=== PATIENT | female | born 1985 | race Two or more races ===

== ENCOUNTER 2019-06-18 20:03 | Emergency (ER) | payer BC ==
[2019-06-18 20:16] VITALS: BP 132/67; PULSE 91
[2019-06-18] MEDS ORDERED: Sodium Chloride 0.9% 10 ML Syringe FLUSH PRN (20:28)
--- NOTE | 2019-06-18 20:57 | EDM.PDOC ---
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 She is with a LMP of 04/21/19. States that about an hour prior to coming to ER she had a "gush of pink blood "followed by a small amount of malina red blood. She has had some slight spotting since that time. She states initially she had some cramping in her right lower quadrant, however she now only has some mild left lower quadrant pain. States that she has had some occasional spotting earlier in the , however nothing significant. 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 Matt. 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 ED EXAM - Physical Exam Exam: See Below Exam Limited By: No Limitations General Appearance: Alert, WD/WN, No Apparent Distress Respiratory/Chest: No Respiratory Distress, Lungs Clear, Normal Breath Sounds, No Accessory Muscle Use, Chest Non-Tender Cardiovascular: Normal Peripheral Pulses, Regular Rate, Rhythm, No Edema, No Gallop, No JVD, No Murmur, No Rub GI/Abdominal Exam: Normal Bowel Sounds, Soft, Non-Tender, No Organomegaly, No Distention, No Abnormal Bruit, No Mass, Pelvis Stable (Female) Exam: Normal External Exam, Vaginal Bleeding, Other (Cervical os closed. Small amount of bleeding noted from the cervical os.). No: Cervical Lesions Neurological: Alert, Oriented, CN II-XII Intact, Normal Cognition, Normal Gait, Normal Reflexes, No Motor/Sensory Deficits Psychiatric: Normal Affect, Normal Mood Skin Exam: Warm, Dry, Intact, Normal Color, No Rash Course - Vital Signs Last Recorded V/S: Last Vital Signs Temp 98.6 F 06/18/19 20:12 Pulse 91 06/18/19 20:12 Resp 14 06/18/19 20:12 BP 132/67 06/18/19 20:12 Pulse Ox 100 06/18/19 20:12 - Orders/Labs/Meds Orders: Active Orders 24 hr Category Date Time Status Pelvic Exam, Set Up [RC] ASDIRECTED Care 06/18/19 21:18 Active Peripheral IV Care [RC] . DIRECTED Care 06/18/19 20:29 Active OB 1st Tri Sgl 1st Gest [US] Stat Exams 06/18/19 20:28 Taken TYPE AND SCREEN [BBK] Stat Lab 06/18/19 20:42 Results Peripheral IV Insertion Adult [OM.PC] Stat Oth 06/18/19 20:28 Ordered Labs: Laboratory Tests 06/18/19 06/18/19 06/18/19 Range/Units 20:42 20:42 20:42 WBC 10.03 (3.98-10.04) K/mm3 RBC 4.30 (3.98-5.22) M/mm3 Hgb 12.5 D (11.2-15.7) gm/dl Hct 36.1 (34.1-44.9) % MCV 84.0 D (79.4-94.8) fl MCH 29.1 (25.6-32.2) pg MCHC 34.6 (32.2-35.5) g/dl RDW Std Deviation 49.1 H (36.4-46.3) fL Plt Count 292 D (182-369) K/mm3 MPV 8.9 L (9.4-12.3) fl Neut % (Auto) 57.8 (34.0-71.1) % Lymph % (Auto) 32.1 (19.3-51.7) % [place] % (Auto) 8.0 (4.7-12.5) % Eos % (Auto) 1.8 (0.7-5.8) Baso % (Auto) 0.1 (0.1-1.2) % Neut # (Auto) 5.80 (1.56-6.13) K/mm3 Lymph # (Auto) 3.22 (1.18-3.74) K/mm3 [place] # (Auto) 0.80 H (0.24-0.36) K/mm3 Eos # (Auto) 0.18 (0.04-0.36) K/mm3 Baso # (Auto) 0.01 (0.01-0.08) K/mm3 Manual Slide Review Normal smear Sodium 139 (136-145) mEq/L Potassium 3.3 L (3.5-5.1) mEq/L Chloride 103 (98-107) mEq/L Carbon Dioxide 22 (21-32) mEq/L Anion Gap 17.3 H (5-15) BUN 11 (7-18) mg/dL Creatinine 0.9 (0.55-1.02) mg/dL Est Cr Clr Drug Dosing 83.23 mL/min Estimated GFR (MDRD) > 60 (>60) mL/min BUN/Creatinine Ratio 12.2 L (14-18) Glucose 96 (74-106) mg/dL Calcium 9.2 (8.5-10.1) mg/dL Total Bilirubin 0.1 L (0.2-1.0) mg/dL AST 13 L (15-37) U/L ALT 21 (14-59) U/L Alkaline Phosphatase 80 (46-116) U/L Total Protein 7.0 (6.4-8.2) g/dl Albumin 3.7 (3.4-5.0) g/dl Globulin 3.3 gm/dL Albumin/Globulin Ratio 1.1 (1-2) HCG, Quant 367333.0 mIU/mL Urine Color (Yellow) Urine Appearance (Clear) Urine pH (5.0-8.0) Ur Specific [place] (1.005-1.030) Urine Protein (Negative) Urine Glucose (UA) (Negative) Urine Ketones (Negative) Urine Occult Blood (Negative) Urine Nitrite (Negative) Urine Bilirubin (Negative) Urine Urobilinogen (0.2-1.0) Ur Leukocyte Esterase (Negative) Urine RBC (0-5) /hpf Urine WBC (0-5) /hpf Ur Squamous Epith Cells (0-5) /hpf Urine Bacteria (FEW) /hpf Urine Mucus (FEW) /hpf Blood Type O POSITIVE 06/18/19 Range/Units 20:51 WBC (3.98-10.04) K/mm3 RBC (3.98-5.22) M/mm3 Hgb (11.2-15.7) gm/dl Hct (34.1-44.9) % MCV (79.4-94.8) fl MCH (25.6-32.2) pg MCHC (32.2-35.5) g/dl RDW Std Deviation (36.4-46.3) fL Plt Count (182-369) K/mm3 MPV (9.4-12.3) fl Neut % (Auto) (34.0-71.1) % Lymph % (Auto) (19.3-51.7) % [place] % (Auto) (4.7-12.5) % Eos % (Auto) (0.7-5.8) Baso % (Auto) (0.1-1.2) % Neut # (Auto) (1.56-6.13) K/mm3 Lymph # (Auto) (1.18-3.74) K/mm3 [place] # (Auto) (0.24-0.36) K/mm3 Eos # (Auto) (0.04-0.36) K/mm3 Baso # (Auto) (0.01-0.08) K/mm3 Manual Slide Review Sodium (136-145) mEq/L Potassium (3.5-5.1) mEq/L Chloride (98-107) mEq/L Carbon Dioxide (21-32) mEq/L Anion Gap (5-15) BUN (7-18) mg/dL Creatinine (0.55-1.02) mg/dL Est Cr Clr Drug Dosing mL/min Estimated GFR (MDRD) (>60) mL/min BUN/Creatinine Ratio (14-18) Glucose (74-106) mg/dL Calcium (8.5-10.1) mg/dL Total Bilirubin (0.2-1.0) mg/dL AST (15-37) U/L ALT (14-59) U/L Alkaline Phosphatase (46-116) U/L Total Protein (6.4-8.2) g/dl Albumin (3.4-5.0) g/dl Globulin gm/dL Albumin/Globulin Ratio (1-2) HCG, Quant mIU/mL Urine Color [place] H (Yellow) Urine Appearance Turbid H (Clear) Urine pH 6.0 (5.0-8.0) Ur Specific [place] > or = 1.030 (1.005-1.030) Urine Protein 1+ H (Negative) Urine Glucose (UA) Negative (Negative) Urine Ketones Trace H (Negative) Urine Occult Blood 3+ H (Negative) Urine Nitrite Negative (Negative) Urine Bilirubin Negative (Negative) Urine Urobilinogen 0.2 (0.2-1.0) Ur Leukocyte Esterase Negative (Negative) Urine RBC >100 H (0-5) /hpf Urine WBC 0-5 (0-5) /hpf Ur Squamous Epith Cells 5-10 H (0-5) /hpf Urine Bacteria Rare (FEW) /hpf Urine Mucus Not seen (FEW) /hpf Blood Type Meds: Medications Discontinued Medications Generic Name Dose Route Start Last Admin Trade Name Freq PRN Reason Stop Dose Admin Sodium Chloride 10 ml 06/18/19 20:28 Saline Flush FLUSH ASDIRECTED PRN Keep Vein Open Departure - Departure Time of Disposition: 21:47 Disposition: Home, Self-Care 01 Condition: Fair Clinical Impression: Subchorionic hematoma in first trimester Qualifiers: Fetus number: single or unspecified fetus Qualified Code(s): O41.8X10 - Other specified disorders of amniotic fluid and membranes, first trimester, not applicable or unspecified - Discharge Information *PRESCRIPTION DRUG MONITORING PROGRAM REVIEWED*: No *COPY OF PRESCRIPTION DRUG MONITORING REPORT IN PATIENT UNA: No Instructions: Subchorionic Hematoma Referrals: Dominick Matt MD [Physician] - Forms: ED Department Discharge Additional Instructions: You were seen in the emergency department today for vaginal bleeding. Your work -up included blood work, urinalysis, and an ultrasound. Your blood work was found to be normal. Your hCG levels are appropriately elevated for your dates. Ultrasound does show that you have a subchorionic hemorrhage which would explain the bleeding you are having. As we discussed, this does not mean that you are having a miscarriage, however it does increase the possibility that you could have a miscarriage. Based on the measurements, your estimated due date is February 03, 2020. Oftentimes, the bleeding associate with a subchorionic hemorrhage will resolve on its own over the next few days. If you should begin bleeding to the amount where you are saturating a pad an hour for more than 2 hours, I would recommend that you return to the emergency department for evaluation. Additionally, I would recommend that you call Dr. Matt's office on Thursday morning to see about scheduling a follow-up appointment prior to July 06 as you are currently scheduled. If you develop any new or worsening symptoms of concern, please do not hesitate to return to the emergency department. Sepsis Event Note - Evaluation Sepsis Screening Result: No Definite Risk - Focused Exam Vital Signs: Vital Signs Temp Pulse Resp BP Pulse Ox 06/18/19 20:12 98.6 F 91 14 132/67 100 Date Exam was Performed: 06/18/19 Time Exam was Performed: 22:11 - My Orders Last 24 Hours: My Active Orders 06/18/19 20:28 OB 1st Tri Sgl 1st Gest [US] Stat Peripheral IV Insertion Adult [OM.PC] Stat 06/18/19 20:29 Peripheral IV Care [RC] . DIRECTED 06/18/19 20:42 TYPE AND SCREEN [BBK] Stat 06/18/19 21:18 Pelvic Exam, Set Up [RC] ASDIRECTED - Assessment/Plan Last 24 Hours: My Active Orders 06/18/19 20:28 OB 1st Tri Sgl 1st Gest [US] Stat Peripheral IV Insertion Adult [OM.PC] Stat 06/18/19 20:29 Peripheral IV Care [RC] . DIRECTED 06/18/19 20:42 TYPE AND SCREEN [BBK] Stat 06/18/19 21:18 Pelvic Exam, Set Up [RC] ASDIRECTED
--- NOTE | 2019-06-19 09:40 | US ---
1st trimester obstetrical ultrasound: Multiple real-time images were obtained transabdominally. Comparison: No previous study for current . Dates: LMP: LMP given as 04/21/19, NAN 01/26/20, gestational age 8 weeks 2 days Current ultrasound: NAN 01/25/20, gestational age 8 weeks 3 days Single intrauterine gestation is seen. Yolk sac and small embryo are identified. Minimal subchorionic hemorrhage is noted. Maternal ovaries are seen. 2.7 cm corpus luteum cyst is noted within the right ovary. Measurements: Hysham-rump length: 1.92 cm - 8 weeks 3 days Heart rate: 168 bpm Impression: 1. Single intrauterine gestation. Dates as noted above. 2. Minimal subchorionic hemorrhage. 3. Small 2.7 cm corpus luteum cyst within the right ovary. Diagnostic code #2 This report was dictated in MDT I agree with preliminary report from bandar, finalized on 06/18/19, 10:33 PM Central Time
== END 2019-06-18 22:00 | disposition home or self-care (01) ==
LOC: JD.ED 20:03
DX: O20.8 Other hemorrhage in early pregnancy (principal); O99.331 Smoking (tobacco) complicating pregnancy, first trimester; F17.210 Nicotine dependence, cigarettes, uncomplicated; Z88.0 Allergy status to penicillin; Z3A.11 11 weeks gestation of pregnancy
CPT/HCPCS: 36415; 76801; 76801-26; 80053; 81001; 84702; 85025; 86850; 86900; 86901; 99283; 99284-25

== ENCOUNTER 2020-01-20 05:28 | Inpatient (IN) | payer BC ==
--- NOTE | 2020-01-19 20:36 | PCM.LDHP ---
L&D History of Present Illness - General Date of Service: 01/20/20 Admit Problem/Dx: Admission Diagnosis/Problem Admission Diagnosis/Problem section 01/19/20 20:26 Lida is a 34-year-old 6 para 4-0-1-4 white female 1/7 weeks gestational age with an NAN of 01/26/2020 who was admitted for elective repeat section. Source of Information: Patient History Limitations: Reports: No Limitations - History of Present Illness Introduction:: Lida is a 34-year-old 6 para 4-0-1-4 white female 1/7 weeks gestational age with an NAN of 01/26/2020 who was admitted for elective repeat section. Repeat section, its risks, benefits including encountering significant scarring, potential for placenta accreta, bleeding, injury, possible blood clots, anesthesia risk and infection are discussed in detail with patient. She appears understand, wishes to proceed and has signed a consent. 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 She had menarche at approximately 13 years of age. Cycles come q. months. Her NAN of 01/26/2020 was set by her certain last menstrual period which started on 04/21/2019. It is supported by multiple ultrasounds done since that time. She denies any control at the time of conception. Her past obstetric history includes sections x4. She has had 1 elective termination of . Her largest baby has been 8 pounds 10 ounces and smallest baby has been 6 pounds 15 ounces. Her section was done for a placental abruption. course: Patient was seen for her first visit at approximately 8 weeks and 6 days. She is seen on a regular basis. Her vital signs remained stable throughout the . Her fundal height growth was appropriate. Her weight gain was from 154.2 to 173.2 pounds for a 19 pound increase. Patient smoked throughout the course of her at less than 1 pack/day. Her group B strep screen is negative. She did have an abnormal 1 hour glucose tolerance test but a normal 3-hour GTT. She declined genetic testing. Her [place] depression screen score on 09/05/2019 was 1/30. Patient received her flu shot on 12/09/2019. She plans to bottlefeed. The placenta is felt to have a succenturiate lobe with marginal cord insertion. Immune. Tdap was given on 11/28/2019. Laboratory testing in consists of the following: Blood is all positive with a negative antibody screen. First hemoglobin was 12.8 g/dL. Platelets were 292,000. Rubella titer showed immunity. RPR was nonreactive. Urine culture was negative. Hepatitis B surface antigen and HIV assays were both negative. Chlamydia and gonorrhea assays were both negative. Second trimester hemoglobin was low at 11.5 g/dL. She was started on ferrous sulfate 325 mg p.o. daily at that time. Platelets at second trimester were 271,000. 1 hour GTT was 150. Her fasting blood sugar was 89. 1 hour glucose was 173. 2- hour glucose was 136. 3-hour glucose was 52. Group the strep screen was negative. Allergies: 1. Penicillin which causes a rash Medications: 1. Ferrous sulfate 325 mg p.o. daily 2. vitamins 1 p.o. daily Past medical history: Unremarkable Past surgical history: 1. D&C 2007 2. C-sections 2007, 2008, 2010, 2015 teen Family history: Mother is alive with some health issues which are unknown. Maternal grandmother is secondary to diabetes and liver cancer. Maternal grandfather is secondary diabetes, stomach cancer and high blood pressure. Maternal aunt with uterine and breast cancer. Family history is positive for menorrhagia and dysmenorrhea with hysterectomies and all of her aunts. There is no family history of bleeding or clotting disorders, anesthesia related issues or related issues. Social history: Patient is . She is a food-ne-kqqs mom. She is a high school graduate. She denies any significant also alcohol or drugs. She smokes less than 1 pack cigarettes per day. Her name is Dio Chew. Review of systems: In general patient has no complaints. Baby has been active. Skin: Negative Lungs: No infectious symptoms or shortness of breath Cardiovascular: No chest pain or exercise intolerance Breasts: No lumps, changes in size, pain, dimpling, discharge or axillary or supraclavicular concerns. GI: Negative : Changes associated with . Musculoskeletal: Negative Neurological: Negative Physical exam: In general the patient is well-developed, well-nourished, pleasant female of stated age in no acute distress. Valuation in clinic patient's blood pressure was 118/66. Weight was 173 with a pregravid weight of 154.2. Height is 5 feet 5 inches. Prepregnancy body mass index is 25.3. Skin is warm dry without lesions. HEENT, neck and back within normal limits. Lungs are clear with good breath sounds in all lung minor. Cardiovascular exam shows regular and rhythm without murmurs. Breast exam is deferred at this time having been done at first visit and found to be normal. Patient plans to bottlefeed. Abdomen is with last fundal height in at 40.5 cm. Baby in vertex presentation by Minesh maneuvers. Genital and per digital exam last done on 01/02/2020 shows cervix to be closed/thick/soft/-3/mid. Extremities and neurological exam are grossly within normal limits. 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 D&C 2007 Psychiatric History: Reports: Anxiety - Past Surgical History Female Surgical History: Reports: Section Social & Family History - Family History Family Medical History: Noncontributory - Tobacco Use Tobacco Use Status *Q: Current Every Day Tobacco User Years of Tobacco use: 10 Packs/Tins Daily: 1 Used Tobacco, but Quit: No Second Hand Smoke Exposure: Yes - Caffeine Use Caffeine Use: Reports: None - Recreational Drug Use Recreational Drug Use: No H&P Review of Systems - Review of Systems: Review Of Systems: See Below L&D Exam - Exam Exam: See Below Problem List Initiated/Reviewed/Updated: Yes Assessment/Plan Comment:: 1. 39-1/7-week intrauterine , history of previous section x4 with desire for repeat section. 2. Group B strep screen negative 3. Risk factors for include history of smoking, history of previous section x4 4. Succenturiate lobe with marginal cord insertion on placental evaluation with ultrasound 5. Patient plans to bottlefeed. 6. Patient is rubella immune. She has had her flu shot and her Tdap during the course of the . Plan: 1. Repeat lower uterine segment transverse section through Pfannenstiel skin incision under spinal block. The procedure, risk, benefits, potential for placenta accreta or separation of the uterine scar and possible need for additional surgery including possibility of hysterectomy all discussed with the patient in detail. She appears understand, wishes to proceed and has signed a consent. 2. DVT prophylaxis with SCDs 3. Covid testing, CBC, type and screen, RPR prior to surgery. 4. Antibiotic prophylaxis prior to surgery 5. Support bottlefeeding decision
[~2020-01-20 05:28] MED LIST: Citric Acid/Sodium Citrate Solution 30 ML Cup PO ONE; Clindamycin Phosphate in D5W 900 MG in Premix Bag 1 BAG IV ONE; Metoclopramide 10 MG/2 ML SDV IVPUSH ONE; Oxytocin/Lactated Ringers 20 UNIT/1,000 ML BAG IV SCH; Sodium Chloride 0.9% 10 ML Syringe FLUSH PRN
[2020-01-20] MEDS: Lactated Ringers 1,000 ML IV SCH ×2 (05:57→07:38)
[2020-01-20] MEDS ORDERED: Morphine PF 10 MG/10 ML SDV ONE (07:07)
[2020-01-20] MEDS ORDERED: Phenylephrine 1% 10 MG/ML SDV ONE (07:07)
[2020-01-20] MEDS ORDERED: Ketorolac 30 MG/ML SDV ONE (07:08)
[2020-01-20] MEDS ORDERED: Oxytocin 10 Units/1 ML SDV ONE (07:08)
[2020-01-20] MEDS ORDERED: Citric Acid/Sodium Citrate Solution 30 ML Cup ONE (07:12)
[2020-01-20] MEDS ORDERED: Lactated Ringers 1,000 ML ONE ×2 (07:12→07:15)
[2020-01-20] MEDS ORDERED: Metoclopramide 10 MG/2 ML SDV ONE (07:12)
[2020-01-20] MEDS ORDERED: Bupivacaine 0.5% 30 ML SDV ONE (07:15)
[2020-01-20] MEDS ORDERED: diphenhydrAMINE 50 MG/ML SDV IVPUSH PRN ×2 (09:03→10:18)
--- NOTE | 2020-01-20 09:04 | PCM.POSTAN ---
POST ANESTHESIA ASSESSMENT - MENTAL STATUS Mental Status: Alert, Oriented - VITAL SIGNS Vital Signs: Last Vital Signs Temp 36.8 C 01/20/20 05:47 Pulse 85 01/20/20 05:47 Resp 16 01/20/20 05:47 BP 118/79 01/20/20 05:47 Pulse Ox 99 01/20/20 05:47 - RESPIRATORY Respiratory Status: Respiratory Rate WNL, Airway Patent, O2 Saturation Stable - CARDIOVASCULAR CV Status: Pulse Rate WNL, Blood Pressure Stable - GASTROINTESTINAL GI Status: No Symptoms - PAIN Pain Score: 0 - POST OP HYDRATION Hydration Status: Adequate & Stable - OBSERVATIONS Free Text/Narrative:: no anesthesia complications noted
--- NOTE | 2020-01-20 09:05 | PCM.PREANE ---
Preanesthetic Assessment - Procedure Proposed Procedure: Repeat - Anesthesia/Transfusion/Family Hx Anesthesia History: Prior Anesthesia Without Reaction Family History of Anesthesia Reaction: No Transfusion History: No Prior Transfusion(s) - Review of Systems General: No Symptoms Pulmonary: No Symptoms Cardiovascular: No Symptoms Gastrointestinal: No Symptoms Neurological: No Symptoms Other: Reports: None - Physical Assessment NPO Status Date: 01/19/20 NPO Status Time: 00:00 Vital Signs: Last Vital Signs Temp 36.8 C 01/20/20 05:47 Pulse 85 01/20/20 05:47 Resp 16 01/20/20 05:47 BP 118/79 01/20/20 05:47 Pulse Ox 99 01/20/20 05:47 Height: 1.65 m Weight: 78.018 kg ASA Class: 2 Mental Status: Alert & Oriented x3 Airway Class: Mallampati = 1 Dentition: Reports: Normal Dentition Thyro-Mental Finger Breadths: 3 Mouth Opening Finger Breadths: 3 ROM/Head Extension: Full Lungs: Clear to Auscultation, Normal Respiratory Effort Cardiovascular: Regular Rate, Regular Rhythm - Lab Values: Laboratory Last Values WBC 10.58 K/mm3 (3.98-10.04) H 01/20/20 06:00 RBC 3.78 M/mm3 (3.98-5.22) L 01/20/20 06:00 Hgb 12.2 gm/dl (11.2-15.7) 01/20/20 06:00 Hct 35.8 % (34.1-44.9) 01/20/20 06:00 MCV 94.7 fl (79.4-94.8) 01/20/20 06:00 MCH 32.3 pg (25.6-32.2) H 01/20/20 06:00 MCHC 34.1 g/dl (32.2-35.5) 01/20/20 06:00 RDW Std Deviation 45.1 fL (36.4-46.3) 01/20/20 06:00 Plt Count 253 K/mm3 (182-369) 01/20/20 06:00 MPV 9.3 fl (9.4-12.3) L 01/20/20 06:00 Neut % (Auto) 65.0 % (34.0-71.1) 01/20/20 06:00 Lymph % (Auto) 26.5 % (19.3-51.7) 01/20/20 06:00 [place] % (Auto) 6.5 % (4.7-12.5) 01/20/20 06:00 Eos % (Auto) 1.0 (0.7-5.8) 01/20/20 06:00 Baso % (Auto) 0.1 % (0.1-1.2) 01/20/20 06:00 Neut # (Auto) 6.87 K/mm3 (1.56-6.13) H 01/20/20 06:00 Lymph # (Auto) 2.80 K/mm3 (1.18-3.74) 01/20/20 06:00 [place] # (Auto) 0.69 K/mm3 (0.24-0.36) H 01/20/20 06:00 Eos # (Auto) 0.11 K/mm3 (0.04-0.36) 01/20/20 06:00 Baso # (Auto) 0.01 K/mm3 (0.01-0.08) 01/20/20 06:00 Blood Type O POSITIVE 01/20/20 06:00 Gel Antibody Screen Negative 01/20/20 06:00 - Allergies Allergies/Adverse Reactions: Allergies Allergy/AdvReac Type Severity Reaction Status Date / Time Penicillins Allergy Hives Verified 01/19/20 16:37 - Anesthesia Plan Pre-Op Medication Ordered: Antacids - Acknowledgements Anesthesia Type Planned: Spinal Pt an Appropriate Candidate for the Planned Anesthesia: Yes Alternatives and Risks of Anesthesia Discussed w Pt/Guardian: Yes Pt/Guardian Understands and Agrees with Anesthesia Plan: Yes PreAnesthesia Questionnaire Gastrointestinal History: Reports: GERD 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 D&C 2007 Psychiatric History: Reports: Anxiety - Past Surgical History Female Surgical History: Reports: Section - SUBSTANCE USE Tobacco Use Status *Q: Current Every Day Tobacco User Tobacco Use Within Last Twelve Months: Cigarettes Second Hand Smoke Exposure: Yes Recreational Drug Use History: No - HOME MEDS Home Medications: Home Meds Ferrous Sulfate 325 mg PO DAILY 01/19/20 [History] Pnv No.95/Ferrous Fum/Folic AC [ Tablet] 1 tab PO DAILY 01/19/20 [History] traMADol HCl [Tramadol HCl] 50 mg PO Q8HR PRN 01/19/20 [History] - CURRENT (IN HOUSE) MEDS Current Meds: Current Medications Diphenhydramine HCl (Benadryl) 25 mg IVPUSH Q6H PRN PRN Reason: Itching Oxytocin/Lactated Ringer's (Pitocin In Lr 20 Units/1,000 Ml) 20 unit in 1,000 mls @ 500 mls/hr IV TITRATE ISABEL; Protocol Lactated Ringer's (Ringers, Lactated) 1,000 mls @ 125 mls/hr IV ASDIRECTED ISABEL Last Admin: 01/20/20 07:38 Dose: 125 mls/hr Documented by: Sodium Chloride (Saline Flush) 10 ml FLUSH ASDIRECTED PRN PRN Reason: Keep Vein Open Discontinued Medications Bupivacaine HCl (Marcaine 0.5%) Confirm Administered Dose 30 ml .ROUTE .STK-MED ONE Stop: 01/20/20 07:16 Citric Acid/Sodium Citrate (Bicitra Solution) 30 ml PO ONETIME ONE Stop: 01/20/20 02:13 Last Admin: 01/20/20 07:18 Dose: 30 ml Documented by: Citric Acid/Sodium Citrate (Bicitra Solution) Confirm Administered Dose 30 ml .ROUTE .STK-MED ONE Stop: 01/20/20 07:13 Gentamicin Sulfate (Pharmacy To Dose - Gentamicin) 1 dose .XX ASDIRECTED [facility] Clindamycin Phosphate 900 mg/ (Premix) 50 mls @ 100 mls/hr IV ONETIME ONE Stop: 01/20/20 02:41 Gentamicin Sulfate 390 mg/ (Sodium Chloride) 109.75 mls @ 109.75 mls/hr IV ONETIME ONE Stop: 01/20/20 08:29 Lactated Ringer's (Ringers, Lactated) Confirm Administered Dose 1,000 mls @ as directed .ROUTE .STK-MED ONE Stop: 01/20/20 07:13 Lactated Ringer's (Ringers, Lactated) Confirm Administered Dose 1,000 mls @ as directed .ROUTE .STK-MED ONE Stop: 01/20/20 07:16 Ketorolac Tromethamine (Toradol) Confirm Administered Dose 30 mg .ROUTE .STK-MED ONE Stop: 01/20/20 07:09 Metoclopramide HCl (Reglan) 10 mg IVPUSH ONETIME ONE Stop: 01/20/20 02:13 Last Admin: 01/20/20 07:18 Dose: 10 mg Documented by: Metoclopramide HCl (Reglan) Confirm Administered Dose 10 mg .ROUTE .STK-MED ONE Stop: 01/20/20 07:13 Morphine Sulfate (Duramorph Pf) Confirm Administered Dose 10 mg .ROUTE .STK-MED ONE Stop: 01/20/20 07:08 Oxytocin (Pitocin) Confirm Administered Dose 20 unit .ROUTE .STK-MED ONE Stop: 01/20/20 07:09 Phenylephrine HCl (Elvis-Synephrine) Confirm Administered Dose 10 mg .ROUTE .STK- MED ONE Stop: 01/20/20 07:08
--- NOTE | 2020-01-20 09:08 | PCM.OPNOTE ---
- General Post-Op/Procedure Note Date of Surgery/Procedure: 01/20/20 Operative Procedure(s): Repeat low uterine segment transverse section through Pfannenstiel skin incision Findings: Moderate scarring noted in the anterior abdominal wall. Uterus tubes ovaries consistent with term . Lower uterine segment was thin at 2 to 3 mm. Baby was in a vertex presentation. Amniotic fluid was clear clear. Female born at 0809 hrs. on 01/20/2020. She weighed 3430 g. (7 pounds 9 ounces). Pre Op Diagnosis: 1. 39-week intrauterine . 2. History of previous with desire for repeat section. Post-Op Diagnosis: Same delivery of viable, 7 pound 9 ounce (3430 g) female with Apgars of 9 and 9 at 0809 hrs. on 01/20/2020. Anesthesia Technique: Spinal Other Anesthesia Type: Marcaine 0.5% - 20 cc local Primary Surgeon: Dominick Matt Secondary Surgeon: Alex Garcia Anesthesia Provider: Javad Art Director Of Grants: Nelida Mccullough Reason Director Of Grants Was Necessary: Retraction, assistance, patient safety, quality of care Fluid Replacement, Intraop: 2,600 Output, Urine Amount: 125 EBL in mLs: 750 Drain/Tube Comments:: Indwelling bladder catheter Complications: None Condition: Good Free Text/Narrative:: Surgery duration: 48 minutes Procedure: The patient is appropriately consented. Patient was transferred to the room and placed in a sitting position. Spinal anesthesia was administered. After confirmation of adequate anesthesia patient was placed in a supine position with a wedge under her right side to facilitate left lateral positioning. The patient was prepped and draped in usual fashion after Lenz catheter was already placed . The anesthetic was checked and found to be adequate. 20 mL of Marcaine 0.5% was injected locally in the Pfannenstiel incision site. The Pfannenstiel skin incision was then made by removing the old scar. It was carried down through skin, subcutaneous and fascial layers. The fascia was then undermined superiorly and inferiorly to allow for adequate operating room. The recti muscles midline and preperitoneal fat was bluntly dissected. Peritoneal cavity was entered longitudinally. The vesicouterine peritoneum was then incised transversely and bladder flap was developed. Lower incision was very thin at 2 to 3 mm. Moderate scarring was noted. Myometrium was incised transversely to the level of the amniotic sac. This incision was extended bilaterally in a blunt fashion. The amniotic sac was then ruptured resulting in clear amniotic fluid. A hand is placed in the low uterine segment and the baby's head was brought forth through the incision. The baby was completely delivered using fundal pressure in a routine fashion. The nose and mouth were bulb suctioned. Baby's cord was clamped x2 cut and baby was handed off to attending diesel tractor engine mechanic Dr Robin. Placenta was expressed after cord blood was obtained. Uterus was then exteriorized to allow for easier closure. The cervix was assessed and found to be dilated adequately to allow egress of blood. The uterus was closed in 2 layers. The first layer a running locked suture of 0 Monocryl, the second layer a running locked vertical mattress suture of 0 Monocryl. 2 sutures of 0 Monocryl were placed on the left lower end of the incision where a small hematoma appeared to be forming. At this time hemostasis confirmed. Sponge instrument needle counts are correct. The uterus was returned to the abdominal cavity and lateral gutters were cleared of blood. Once again sponge needle counts are correct. The anterior abdominal wall was closed with a #1 PDS suture from angle to angle. He was used to contain bleede rs and obtain hemostasis. The subcutaneous area was found to be free of any bleeders. Approximately 5 interrupted sutures of 0 Monocryl were used to reapproximate the subcutaneous layer. Skin was closed with a running subcuticular stitch of 3-0 Monocryl in a vertical mattress suture fashion using a Suraj needle. Prineo mesh/glue was then applied to further approximate the incision. It should be noted that patient received Ancef and gentamicin with dosage per pharmacy recommendations preoperatively for infection prophylaxis and had Pitocin infused after delivery of the placenta to facilitate uterine contraction. She also had sequential compression stockings in place for DVT prophylaxis. Patient was discharged from the operating room in satisfactory condition.
[2020-01-20] MEDS ORDERED: Docusate Sodium 100 MG Cap PO PRN (10:18)
[2020-01-20] MEDS ORDERED: Naloxone 0.4 MG/ML SDV IVPUSH PRN (10:18)
[2020-01-20] MEDS ORDERED: traMADol 50 MG Tab PO PRN (10:18)
[2020-01-20] MEDS ORDERED: Ondansetron 4 MG/2 ML SDV IV PRN (10:18)
[2020-01-20] MEDS ORDERED: ePHEDrine 50 MG/ML SDV IVPUSH PRN (10:18)
[2020-01-20] MEDS ORDERED: Dextrose 5%-Lactated Ringers 1,000 ML IV SCH (10:18)
[2020-01-20] MEDS: Prenatal Multivitamin with Calcium/Folic Acid/Iron Tab PO SCH (10:49)
[2020-01-20] MEDS: Simethicone 80 MG Tab.Chew PO SCH ×3 (14:06→20:29)
[2020-01-20] MEDS: Ibuprofen 800 MG Tab PO SCH ×2 (14:07→23:05)
--- NOTE | 2020-01-21 00:54 | PCM.PNPP ---
- General Info Date of Service: 01/21/20 Functional Status: Reports: Pain Controlled, Tolerating Diet, Ambulating, Urinating - Review of Systems General: Reports: No Symptoms Pulmonary: Reports: No Symptoms Cardiovascular: Reports: No Symptoms Gastrointestinal: Reports: No Symptoms. Denies: Abdominal Pain Genitourinary: Reports: No Symptoms Musculoskeletal: Reports: No Symptoms Neurological: Reports: No Symptoms - Patient Data Vital Signs - Most Recent: Last Vital Signs Temp 36.6 C 01/20/20 23:55 Pulse 62 01/20/20 23:56 Resp 16 01/20/20 23:55 BP 92/51 L 01/20/20 23:55 Pulse Ox 96 01/20/20 23:56 Weight - Most Recent: 78.018 kg I&O - Last 24 Hours: Intake & Output 01/20/20 01/20/20 01/21/20 14:59 22:59 06:59 Intake Total 2900 180 Output Total 1250 450 500 Balance 1650 -270 -500 Lab Results - Last 24 Hours: Laboratory Results - last 24 hr 01/20/20 01/20/20 Range/Units 06:00 06:00 WBC 10.58 H (3.98-10.04) K/mm3 RBC 3.78 L (3.98-5.22) M/mm3 Hgb 12.2 (11.2-15.7) gm/dl Hct 35.8 (34.1-44.9) % MCV 94.7 (79.4-94.8) fl MCH 32.3 H (25.6-32.2) pg MCHC 34.1 (32.2-35.5) g/dl RDW Std Deviation 45.1 (36.4-46.3) fL Plt Count 253 (182-369) K/mm3 MPV 9.3 L (9.4-12.3) fl Neut % (Auto) 65.0 (34.0-71.1) % Lymph % (Auto) 26.5 (19.3-51.7) % [place] % (Auto) 6.5 (4.7-12.5) % Eos % (Auto) 1.0 (0.7-5.8) Baso % (Auto) 0.1 (0.1-1.2) % Neut # (Auto) 6.87 H (1.56-6.13) K/mm3 Lymph # (Auto) 2.80 (1.18-3.74) K/mm3 [place] # (Auto) 0.69 H (0.24-0.36) K/mm3 Eos # (Auto) 0.11 (0.04-0.36) K/mm3 Baso # (Auto) 0.01 (0.01-0.08) K/mm3 Blood Type O POSITIVE Gel Antibody Screen Negative Med Orders - Current: Current Medications Diphenhydramine HCl (Benadryl) 25 mg IVPUSH Q6H PRN PRN Reason: Itching Diphenhydramine HCl (Benadryl) 25 mg IVPUSH Q6H PRN PRN Reason: Itching or Nausea Docusate Sodium (Colace) 100 mg PO Q12H PRN PRN Reason: Constipation Ephedrine Sulfate (Ephedrine Sulfate) 5 mg IVPUSH SEECOMMENT PRN PRN Reason: Other Ibuprofen (Motrin) 800 mg PO Q8H [facility] Last Admin: 01/20/20 23:05 Dose: 800 mg Documented by: Naloxone HCl (Narcan) 0.1 mg IVPUSH SEECOMMENT PRN PRN Reason: Respiratory Depression Ondansetron HCl (Zofran) 4 mg IV Q4H PRN PRN Reason: Nausea/Vomiting Last Admin: 01/20/20 10:49 Dose: 4 mg Documented by: Prenat Multivit/Certified Fire Investigator/Iron/Folic Ac ( Plus Iron) 1 each PO DAILY [facility] Last Admin: 01/20/20 10:49 Dose: Not Given Documented by: Simethicone (Simethicone) 80 mg PO QID [facility] Last Admin: 01/20/20 20:29 Dose: 80 mg Documented by: Tramadol HCl (Ultram) 50 mg PO Q4H PRN PRN Reason: Pain Discontinued Medications Bupivacaine HCl (Marcaine 0.5%) Confirm Administered Dose 30 ml .ROUTE .STK-MED ONE Stop: 01/20/20 07:16 Last Admin: 01/20/20 08:04 Dose: 20 ml Documented by: Citric Acid/Sodium Citrate (Bicitra Solution) 30 ml PO ONETIME ONE Stop: 01/20/20 02:13 Last Admin: 01/20/20 07:18 Dose: 30 ml Documented by: Citric Acid/Sodium Citrate (Bicitra Solution) Confirm Administered Dose 30 ml .ROUTE .STK-MED ONE Stop: 01/20/20 07:13 Gentamicin Sulfate (Pharmacy To Dose - Gentamicin) 1 dose .XX ASDIRECTED [facility] Clindamycin Phosphate 900 mg/ (Premix) 50 mls @ 100 mls/hr IV ONETIME ONE Stop: 01/20/20 02:41 Oxytocin/Lactated Ringer's (Pitocin In Lr 20 Units/1,000 Ml) 20 unit in 1,000 mls @ 500 mls/hr IV TITRATE ISABEL; Protocol Lactated Ringer's (Ringers, Lactated) 1,000 mls @ 125 mls/hr IV ASDIRECTED [facility] Last Admin: 01/20/20 07:38 Dose: 125 mls/hr Documented by: Gentamicin Sulfate 390 mg/ (Sodium Chloride) 109.75 mls @ 109.75 mls/hr IV ONETIME ONE Stop: 01/20/20 08:29 Lactated Ringer's (Ringers, Lactated) Confirm Administered Dose 1,000 mls @ as directed .ROUTE .STK-MED ONE Stop: 01/20/20 07:13 Lactated Ringer's (Ringers, Lactated) Confirm Administered Dose 1,000 mls @ as directed .ROUTE .STK-MED ONE Stop: 01/20/20 07:16 Dextrose/Lactated Ringer's (Dextrose 5%-Lactated Ringers) 1,000 mls @ 125 mls/hr IV ASDIRECTED [facility] Stop: 01/20/20 18:17 Last Admin: 01/20/20 10:27 Dose: 125 mls/hr Documented by: Ketorolac Tromethamine (Toradol) Confirm Administered Dose 30 mg .ROUTE .STK-MED ONE Stop: 01/20/20 07:09 Metoclopramide HCl (Reglan) 10 mg IVPUSH ONETIME ONE Stop: 01/20/20 02:13 Last Admin: 01/20/20 07:18 Dose: 10 mg Documented by: Metoclopramide HCl (Reglan) Confirm Administered Dose 10 mg .ROUTE .STK-MED ONE Stop: 01/20/20 07:13 Morphine Sulfate (Duramorph Pf) Confirm Administered Dose 10 mg .ROUTE .STK-MED ONE Stop: 01/20/20 07:08 Oxytocin (Pitocin) Confirm Administered Dose 20 unit .ROUTE .STK-MED ONE Stop: 01/20/20 07:09 Phenylephrine HCl (Elvis-Synephrine) Confirm Administered Dose 10 mg .ROUTE .STK- MED ONE Stop: 01/20/20 07:08 Sodium Chloride (Saline Flush) 10 ml FLUSH ASDIRECTED PRN PRN Reason: Keep Vein Open - Interaction Disposition, : in Room with Family Infant Interaction: Holding Infant Feeding: Bottle Fed Infant Support Person: - Recovery Exam Fundal Tone: Firm Fundal Level: At Umbilicus Fundal Placement: Midline Lochia Amount: Small Lochia Color: Rubra/Red Perineum Description: Intact, Minimal Bruising/Swelling Episiotomy/Laceration: None Bladder Status: Voiding Urinary Elimination: Voided - Exam General: Alert, Oriented, Cooperative Lungs: Clear to Auscultation, Normal Respiratory Effort Cardiovascular: Regular Rate, Regular Rhythm GI/Abdominal Exam: Soft, Non-Tender Extremities: Normal Inspection Skin: Warm, Dry, Intact Wound/Incisions: Healing Well, No Drainage - Problem List & Annotations (1) S/P repeat low transverse SNOMED Code(s): 340854591, 91718037, 175835290, 683425838, [id number] Code(s): Z98.891 - HISTORY OF UTERINE SCAR FROM PREVIOUS SURGERY Status: Acute Current Visit: Yes - Problem List Review Problem List Initiated/Reviewed/Updated: Yes - Assessment Assessment:: POD#1 - Plan Plan:: * Routine cares * Bottle feeding * Discharge home in 1-2 days
[2020-01-21] MEDS: Ibuprofen 800 MG Tab PO SCH (06:13)
--- NOTE | 2020-01-21 08:09 | PCM.DCSUM1 ---
Discharge Summary - Discharge Data Discharge Date: 01/21/20 Discharge Disposition: Home, Self-Care 01 Condition: Good - Referral to Home Health Primary Care Physician: Dominick Matt MD - Discharge Diagnosis/Problem(s) (1) S/P repeat low transverse SNOMED Code(s): 943360430, 93388960, 825508562, 598495140, 083445164 ICD Code: Z98.891 - HISTORY OF UTERINE SCAR FROM PREVIOUS SURGERY Status: Acute Current Visit: Yes - Patient Summary/Data Operative Procedure(s) Performed: Repeat low uterine segment transverse section through Pfannenstiel skin incision Complications: None Consults: None Recommended Follow-up Testing/Procedures: Follow up in 2-3 weeks for post op check Hospital Course: 34 y/o presented at 39 1/7 wks for repeat . Surgery was uncomplicated. See delivery note. did well and requested discharge home on PPD#1. This was felt reasonable and accommodated - Patient Instructions Diet: Regular Diet as Tolerated Activity: No Lifting Over 10 Pounds Activity, Other: Pelvic rest for 6 weeks Driving: Do Not Drive (While taking pain medications ) Showering/Bathing: May Shower, No Tub Bathing/Swimming Wound/Incision Care: Keep Operative Site/Wound Site Clean and Dry Notify Provider of: Fever, Increased Pain, Swelling and Redness, Drainage, Nausea and/or Vomiting - Discharge Plan *PRESCRIPTION DRUG MONITORING PROGRAM REVIEWED*: No *COPY OF PRESCRIPTION DRUG MONITORING REPORT IN PATIENT UNA: No Prescriptions/Med Rec: traMADol HCl [Tramadol HCl] 50 mg PO Q8HR PRN #20 PRN Reason: Pain Home Medications: Home Meds Ferrous Sulfate 325 mg PO DAILY 01/19/20 [History] Pnv No.95/Ferrous Fum/Folic AC [ Tablet] 1 tab PO DAILY 01/19/20 [History] Docusate Sodium [Colace] 100 mg PO Q12H PRN cap 01/21/20 [Rx] Ibuprofen [Motrin] 800 mg PO Q8H tablet 01/21/20 [Rx] traMADol HCl [Tramadol HCl] 50 mg PO Q8HR PRN #20 01/21/20 [Rx] Patient Handouts: Steps to Quit Smoking Referrals: Dominick Matt MD [Primary Care Provider] - (Follow up in 2-3 weeks for post op check ) - Discharge Summary/Plan Comment DC Time >30 min.: No - Patient Data Vitals - Most Recent: Last Vital Signs Temp 36.7 C 01/21/20 03:32 Pulse 69 01/21/20 04:58 Resp 18 01/21/20 04:58 BP 100/55 L 01/21/20 03:32 Pulse Ox 97 01/21/20 04:58 Weight - Most Recent: 78.018 kg I&O - Last 24 hours: Intake & Output 01/20/20 01/21/20 01/21/20 22:59 06:59 14:59 Intake Total 180 Output Total 450 1900 Balance -270 -1900 Lab Results - Last 24 hrs: Laboratory Results - last 24 hr 01/21/20 Range/Units 05:48 WBC 12.74 H (3.98-10.04) K/mm3 RBC 3.74 L (3.98-5.22) M/mm3 Hgb 12.1 (11.2-15.7) gm/dl Hct 35.9 (34.1-44.9) % MCV 96.0 H (79.4-94.8) fl MCH 32.4 H (25.6-32.2) pg MCHC 33.7 (32.2-35.5) g/dl RDW Std Deviation 46.9 H (36.4-46.3) fL Plt Count 258 (182-369) K/mm3 MPV 9.5 (9.4-12.3) fl Neut % (Auto) 70.8 (34.0-71.1) % Lymph % (Auto) 20.7 (19.3-51.7) % [place] % (Auto) 6.6 (4.7-12.5) % Eos % (Auto) 0.9 (0.7-5.8) Baso % (Auto) 0.2 (0.1-1.2) % Neut # (Auto) 9.03 H (1.56-6.13) K/mm3 Lymph # (Auto) 2.64 (1.18-3.74) K/mm3 [place] # (Auto) 0.84 H (0.24-0.36) K/mm3 Eos # (Auto) 0.11 (0.04-0.36) K/mm3 Baso # (Auto) 0.02 (0.01-0.08) K/mm3 Med Orders - Current: Current Medications Diphenhydramine HCl (Benadryl) 25 mg IVPUSH Q6H PRN PRN Reason: Itching Diphenhydramine HCl (Benadryl) 25 mg IVPUSH Q6H PRN PRN Reason: Itching or Nausea Docusate Sodium (Colace) 100 mg PO Q12H PRN PRN Reason: Constipation Ephedrine Sulfate (Ephedrine Sulfate) 5 mg IVPUSH SEECOMMENT PRN PRN Reason: Other Ibuprofen (Motrin) 800 mg PO Q8H [facility] Last Admin: 01/21/20 06:13 Dose: 800 mg Documented by: Naloxone HCl (Narcan) 0.1 mg IVPUSH SEECOMMENT PRN PRN Reason: Respiratory Depression Ondansetron HCl (Zofran) 4 mg IV Q4H PRN PRN Reason: Nausea/Vomiting Last Admin: 01/20/20 10:49 Dose: 4 mg Documented by: Prenat Multivit/Body Sander/Iron/Folic Ac ( Plus Iron) 1 each PO DAILY [facility] Last Admin: 01/20/20 10:49 Dose: Not Given Documented by: Simethicone (Simethicone) 80 mg PO QID [facility] Last Admin: 01/20/20 20:29 Dose: 80 mg Documented by: Tramadol HCl (Ultram) 50 mg PO Q4H PRN PRN Reason: Pain Discontinued Medications Bupivacaine HCl (Marcaine 0.5%) Confirm Administered Dose 30 ml .ROUTE .STK-MED ONE Stop: 01/20/20 07:16 Last Admin: 01/20/20 08:04 Dose: 20 ml Documented by: Citric Acid/Sodium Citrate (Bicitra Solution) 30 ml PO ONETIME ONE Stop: 01/20/20 02:13 Last Admin: 01/20/20 07:18 Dose: 30 ml Documented by: Citric Acid/Sodium Citrate (Bicitra Solution) Confirm Administered Dose 30 ml .ROUTE .STK-MED ONE Stop: 01/20/20 07:13 Last Admin: 01/21/20 07:25 Dose: Not Given Documented by: Gentamicin Sulfate (Pharmacy To Dose - Gentamicin) 1 dose .XX ASDIRECTED [facility] Clindamycin Phosphate 900 mg/ (Premix) 50 mls @ 100 mls/hr IV ONETIME ONE Stop: 01/20/20 02:41 Oxytocin/Lactated Ringer's (Pitocin In Lr 20 Units/1,000 Ml) 20 unit in 1,000 mls @ 500 mls/hr IV TITRATE ISABEL; Protocol Lactated Ringer's (Ringers, Lactated) 1,000 mls @ 125 mls/hr IV ASDIRECTED [facility] Last Admin: 01/20/20 07:38 Dose: 125 mls/hr Documented by: Gentamicin Sulfate 390 mg/ (Sodium Chloride) 109.75 mls @ 109.75 mls/hr IV ONETIME ONE Stop: 01/20/20 08:29 Lactated Ringer's (Ringers, Lactated) Confirm Administered Dose 1,000 mls @ as directed .ROUTE .STK-MED ONE Stop: 01/20/20 07:13 Lactated Ringer's (Ringers, Lactated) Confirm Administered Dose 1,000 mls @ as directed .ROUTE .STK-MED ONE Stop: 01/20/20 07:16 Last Admin: 01/21/20 07:25 Dose: Not Given Documented by: Dextrose/Lactated Ringer's (Dextrose 5%-Lactated Ringers) 1,000 mls @ 125 mls/hr IV ASDIRECTED [facility] Stop: 01/20/20 18:17 Last Admin: 01/20/20 10:27 Dose: 125 mls/hr Documented by: Ketorolac Tromethamine (Toradol) Confirm Administered Dose 30 mg .ROUTE .STK-MED ONE Stop: 01/20/20 07:09 Metoclopramide HCl (Reglan) 10 mg IVPUSH ONETIME ONE Stop: 01/20/20 02:13 Last Admin: 01/20/20 07:18 Dose: 10 mg Documented by: Metoclopramide HCl (Reglan) Confirm Administered Dose 10 mg .ROUTE .STK-MED ONE Stop: 01/20/20 07:13 Last Admin: 01/21/20 07:25 Dose: Not Given Documented by: Morphine Sulfate (Duramorph Pf) Confirm Administered Dose 10 mg .ROUTE .STK-MED ONE Stop: 01/20/20 07:08 Oxytocin (Pitocin) Confirm Administered Dose 20 unit .ROUTE .STK-MED ONE Stop: 01/20/20 07:09 Phenylephrine HCl (Elvis-Synephrine) Confirm Administered Dose 10 mg .ROUTE .[employer]- [employer] ONE Stop: 01/20/20 07:08 Sodium Chloride (Saline Flush) 10 ml FLUSH ASDIRECTED PRN PRN Reason: Keep Vein Open
[2020-01-21] MEDS: Simethicone 80 MG Tab.Chew PO SCH (08:37)
[2020-01-21] MEDS: Prenatal Multivitamin with Calcium/Folic Acid/Iron Tab PO SCH (08:37)
[2020-01-21 12:00] VITALS: BP 118/74; PULSE 68
--- NOTE | 2020-01-21 21:51 | PCM48HPAN ---
Post Anesthesia Note - EVALUATION WITHIN 48HRS OF ANESTHETIC Vital Signs in Normal Range: Yes Patient Participated in Evaluation: No Respiratory Function Stable: Yes Airway Patent: Yes Cardiovascular Function Stable: Yes Hydration Status Stable: Yes Pain Control Satisfactory: Yes Nausea and Vomiting Control Satisfactory: Yes Mental Status Recovered: Yes Vital Signs: Last Vital Signs Temp 36.8 C 01/21/20 11:23 Pulse 68 01/21/20 11:23 Resp 16 01/21/20 11:23 BP 118/74 01/21/20 11:23 Pulse Ox 98 01/21/20 11:23 - COMMENTS/OBSERVATIONS Free Text/Narrative:: Routine recovery. No concerns noted.
== END 2020-01-21 11:35 | disposition home or self-care (01) | DRG 540 ==
LOC: JD.OB 05:28
PROVIDERS: ADMIT Obstetrics & Gynecology; ATTEND Obstetrics & Gynecology
PROC: 10D00Z1 Extraction of Products of Conception, Low, Open Approach (ICD-10-PCS; principal; 2020-01-20)
DX: O34.211 Maternal care for low transverse scar from previous cesarean delivery (principal); Z3A.39 39 weeks gestation of pregnancy; Z37.0 Single live birth; O99.334 Smoking (tobacco) complicating childbirth; F17.210 Nicotine dependence, cigarettes, uncomplicated
CPT/HCPCS: 01961; 36415; 59025; 85025; 86592; 86850; 86900; 86901; A9270-GY; J1885; J2270; J2370; J2405; J2590; J2765; J3490; J7120; J7121

== ENCOUNTER 2021-09-01 17:29 | Day surgery (SDC) | payer BC ==
[2021-09-01] MEDS ORDERED: Sodium Chloride 0.9% 10 ML Syringe FLUSH PRN (18:04)
[2021-09-01] MEDS ORDERED: Sodium Chloride 0.9% 1,000 ML IV ONE (18:11)
[2021-09-01] MEDS ORDERED: HYDROmorphone 0.5 MG/0.5 ML Syringe IVPUSH ONE (18:11)
[2021-09-01] MEDS ORDERED: Doxycycline 100 MG Cap PO ONE (21:20)
[2021-09-01] MEDS ORDERED: Sodium Chloride 0.9% 1,000 ML IV SCH (21:30)
[2021-09-01] MEDS ORDERED: fentaNYL 250 MCG/5 ML SDV ONE (21:49)
[2021-09-01] MEDS ORDERED: Midazolam 1 MG/ML 2 ML SDV ONE (21:49)
[2021-09-01] MEDS ORDERED: Propofol 200 MG/20 ML SDV ONE (21:49)
[2021-09-01] MEDS ORDERED: Lidocaine 1% 4 ML ONE (21:50)
[2021-09-01] MEDS ORDERED: Ondansetron 4 MG/2 ML SDV ONE (21:51)
[2021-09-01] MEDS ORDERED: Dexamethasone 4 MG/ML SDV ONE (21:51)
[2021-09-01] MEDS ORDERED: Rocuronium 50 MG/5 ML Vial ONE (22:17)
[2021-09-01] MEDS ORDERED: Lactated Ringers 1,000 ML ONE (22:30)
[2021-09-01] MEDS ORDERED: Methylergonovine 0.2 MG/1 ML Amp ONE (23:39)
[2021-09-02] MEDS ORDERED: Ketorolac 30 MG/ML SDV ONE (00:32)
[2021-09-02] MEDS ORDERED: fentaNYL 100 MCG/2 ML SDV IVPUSH PRN (00:56)
[2021-09-02] MEDS ORDERED: Ondansetron 4 MG/2 ML SDV IVPUSH PRN (00:56)
[2021-09-02] MEDS ORDERED: HYDROmorphone 0.5 MG/0.5 ML Syringe IVPUSH PRN (00:56)
[2021-09-02] MEDS ORDERED: Acetaminophen/HYDROcodone 325-5 MG Tab PO PRN (00:57)
[2021-09-02] MEDS ORDERED: Lactated Ringers 1,000 ML ONE (01:09)
[2021-09-02 01:38] VITALS: BP 114/74; PULSE 78
== END 2021-09-02 01:40 | disposition home or self-care (01) ==
LOC: JD.ED 17:29 → SUPCPDRO 17:29 → JD.SDS 21:16
PROVIDERS: ATTEND Obstetrics & Gynecology
DX: O03.1 Delayed or excessive hemorrhage following incomplete spontaneous abortion (principal); F41.9 Anxiety disorder, unspecified; F17.210 Nicotine dependence, cigarettes, uncomplicated; K21.9 Gastro-esophageal reflux disease without esophagitis; Z88.0 Allergy status to penicillin; Z79.899 Other long term (current) drug therapy
CPT/HCPCS: 36415; 59812; 76817; 84702; 85025; 86850; 86900; 86901; A9270; J1100; J1170; J1885; J2210; J2250; J2405; J2704; J3010; J3490; J7030; J7120; 01965

== ENCOUNTER 2022-02-20 14:37 | Emergency (ER) | payer BC ==
[2022-02-20] MEDS ORDERED: Lidocaine 1% 10 ML MDV INJECT ONE (18:06)
[2022-02-20 19:45] VITALS: BP 119/82; PULSE 66
== END 2022-02-20 19:44 | disposition home or self-care (01) ==
LOC: JD.ED 14:37
DX: S92.511A Displaced fracture of proximal phalanx of right lesser toe(s), initial encounter for closed fracture (principal); Z72.0 Tobacco use; Z88.0 Allergy status to penicillin; W23.0XXA Caught, crushed, jammed, or pinched between moving objects, initial encounter
CPT/HCPCS: 28515; 73660-26-T9; 73660-T9; 99283